=== PATIENT | female | born 1980 | race Caucasian/White ===

== ENCOUNTER 2016-10-01 12:58 | Emergency (ER) | payer SELFPAY ==
[2016-10-01] MEDS ORDERED: Promethazine HCl 25 MG/ML VIAL ONE (13:45)
[2016-10-01] MEDS ORDERED: methylPREDNISolone Sod Succ/PF 125 MG/2 ML VIAL ONE (13:45)
[2016-10-01 14:01] LABS: #Basophils 0.1 thou/uL (0.0-0.2); #Eosinphils 0.7 thou/uL (0.0-0.7); #Lymphocytes 1.6 thou/uL (1.20-3.40); #Monocytes 0.8 thou/uL (0.11-0.59); #Neutrophils 5.3 thou/uL (1.40-6.50); %Eosinophils 8.1 % (0.0-10.0); %Monocytes 9.4 % (0.0-10.0); Hematocrit 43.5 % (36.0-47.0); Mean Platelet Volume 8.6 fL (7.4-10.4); Red Blood Cell (RBC) Count 4.77 mill/uL (4.20-5.40); White Blood Cell (WBC) Count 8.5 thou/uL (4.8-10.8)
[2016-10-01 14:14] LABS: Bilirubin Negative (Negative); Blood, Urine Negative (Negative); Glucose, Urine (Dipstick) Negative (Negative); Ketone, Urine Negative (Negative); Nitrite Negative (Negative); Protein, Urine (Dipstick) Negative (Neg-Trace); Urobilinogen 0.2 mg/dL (0.2-1.0)
[2016-10-01 14:18] LABS: ALT (SGPT) 15 U/L (0-55); AST (SGOT) 15 U/L (5-34); Alkaline Phosphatase 71 U/L (40-150); Anion Gap 15 mmol/L (10-20); BUN (Urea Nitrogen) 8 mg/dL (7.0-18.7); Bilirubin, Total 0.6 mg/dL (0.2-1.2); Calc. Creatinine Clearance 0 mL/min (70-130); Calcium 9.9 mg/dL (7.8-10.44); Carbon Dioxide 23 mmol/L (22-29); Chloride 108 mmol/L (98-107); Estimated GFR-MDRD 87; Globulin 2.9 g/dL (2.4-3.5); Protein, Total 7.9 g/dL (6.0-8.3)
--- NOTE | 2016-10-01 15:04 | ERRECORD ---
[facility] EMERGENCY RECORD HPI WEAK-DIZZY (13:35 JPIP) CHIEF COMPLAINT: Patient presents for evaluation of dizziness, Patient presents for evaluation of vertigo. HISTORIAN: History provided by patient. LOCATION: No localizing symptoms. QUALITY: Patient is alert and oriented to person, place and time, [place] coma score is 15. SEVERITY: Currently symptoms are moderate. TIME COURSE: Sudden onset of symptoms, 5, days ago, Symptoms are worsening, are constant, initial onset of symptoms was approx. 1 year ago. She has had intermittent episodes of vertigo since. ASSOCIATED WITH: No associated chest pain, No associated chills, No associated ear pain, No associated fever, No associated headache, No associated nausea, No associated vomiting, No associated visual changes, No associated upper respiratory infection. EXACERBATED BY: Patient's condition exacerbated by movement. RELIEVED BY: Patient's condition relieved by remaining still. ROS (13:35 JPIP) CONSTITUTIONAL: Historian denies chills, denies fatigue, denies fever, denies lethargy, denies malaise. EYES: Historian denies eye pain, denies eye redness, denies vision changes. ENT: Historian denies otalgia, denies otorrhea, denies rhinorrhea, denies sinus pain. CARDIOVASCULAR: Historian denies chest pain, denies palpitations. RESPIRATORY: Historian denies cough, denies shortness of breath. GI: Historian denies nausea, denies vomiting. GENITOURINARY FEMALE: Historian denies dysuria, reports frequency, denies urgency. SKIN: Historian denies rash, denies skin changes, denies skin lesions. NEUROLOGIC: Historian reports dizziness, denies focal weakness, denies headache, denies lethargy, denies mental status changes, denies paralysis, reports paresthesias. [place] kim hands and feet "tingling" and feeling strange. ENDOCRINE: Historian denies polydipsia, reports polyuria. PSYCHIATRIC: Historian reports drug abuse, reports marijuana abuse. +smoker. NOTES: All systems reviewed, negative except as described above. PAST MEDICAL HISTORY MEDICAL HISTORY: Past medical history includes history of malignancy, primary site cervical, metastatic, treated with surgery, Date of last treatment: 09/19/2013, Past medical history includes pulmonary disease, asthma. (13:08 KMOR) FEMALE SURGICAL HISTORY: scar tissue removed from uterus, Surgical history of appendectomy, Date of surgery 2003, Surgical &a-1R&a+25V*p+0X*[id number]*c202B*c15G*c2P*p-0X&a-25V&a+1R Name: Alexandra Adamson : 1980 F36 MedRec: [id number] AcctNum: [id number] Prepared: Stephanie Oct 01, 2016 15:02 by Interface Page [address] [facility] EMERGENCY RECORD history of tonsillectomy, Surgical history of tubal ligation, Date of surgery 2006. (13:08 KMOR) PSYCHIATRIC HISTORY: No previous psychiatric history. (13:08 KMOR) SOCIAL HISTORY: Patient drinks socially, every week, Patient currently uses drugs, abuses marijuana, Patient currently uses tobacco, smokes cigarettes, daily, Patient smokes 1/2 packs per day. (13:08 KMOR) NOTES: Nursing records reviewed, Medication list reviewed. (13:40 JPIP) KNOWN ALLERGIES No Known Drug Allergies CURRENT MEDICATIONS (14:12 KMOR) None VITAL SIGNS VITAL SIGNS: BP: 140/100, Pulse: 72, Resp: 18, Temp: 98.2 (Oral), Pain: 0, O2 sat: 97 on Room Air, Time: 10/01/2016 13:04. (13:04 KMOR) BP: 135/85, Pulse: 71, Resp: 18, Pain: 0, O2 sat: 97 on Room Air, Time: 10/01/2016 13:20. (13:20 KMOR) BP: 118/81, Pulse: 85, Resp: 18, Pain: 0, O2 sat: 99 on Room Air, Time: 10/01/2016 14:30. (14:30 KMOR) Temp: 98.4 (Oral), Time: 10/01/2016 14:39. (14:39 AHOO) PHYSICAL EXAM (13:38 JPIP) CONSTITUTIONAL: Vital signs reviewed, Patient afebrile, Pulse normal, Blood pressure normal, Respiratory rate normal, Patient appears, uncomfortable, Patient alert and oriented to person, place and time. HEAD: Head exam included findings of head atraumatic, normocephalic. EYES: Eye exam included findings of eyelids normal to inspection, Pupils equally round and reactive to light, Left pupil 3 mm in size, Right pupil 3 mm in size, Extraocular muscles intact, Conjunctiva normal, Sclera normal, no periorbital ecchymosis, no periorbital edema, no periorbital erythema, Nystagmus present, horizontal. ENT: Ear exam normal, external ear normal, tympanic membranes normal, no foreign body, no drainage, no bleeding, Pharynx exam normal, not injected, no swelling, symmetrical, Uvula exam normal, midline, no edema, Mouth exam normal, mucous membranes moist. NECK: Neck exam included findings of normal range of motion, Trachea midline, no meningeal signs, no cervical adenopathy, no tenderness. RESPIRATORY CHEST: Respiratory exam included findings of no respiratory distress, Breath sounds clear, No wheezing, No rales, No rhonchi, Breath sounds not absent, Breath sounds not diminished. CARDIOVASCULAR: Cardiovascular exam included findings of heart &a-1R&a+25V*p+0X*[id number]*c202B*c15G*c2P*p-0X&a-25V&a+1R Name: Alexandra Adamson : 1980 F36 MedRec: [id number] AcctNum: [id number] Prepared: Stephanie Oct 01, 2016 15:02 by Interface Page [address] [facility] EMERGENCY RECORD rate regular rate and rhythm, Heart sounds normal, no murmurs, no rub. ABDOMEN FEMALE: Abdominal exam included findings of abdomen nontender, Liver normal, Spleen normal, no distension, no mass, no pulsatile masses, no peritoneal signs, no rigidity, no guarding, no rebound. UPPER EXTREMITY: Upper extremity exam included findings of inspection normal, Range of motion normal. LOWER EXTREMITY: Lower extremity exam included findings of inspection normal, Range of motion normal. NEURO: [place] coma scale 15, Neuro exam findings include patient oriented to person, place and time, Speech normal, Gait abnormal, not tested due to dizziness, no focal motor deficits, Babinski's negative, Nystagmus present, horizontal, bilaterally, no clonus, NIHSS- 0- CN II-XII intact. SKIN: Skin exam included findings of skin warm, dry, and normal in color. LYMPHATIC: Lymphatic exam included findings of cervical nodes normal, Submandibular normal. PSYCHIATRIC: Psychiatric exam included findings of patient oriented to person place and time, Normal affect. EKG INTERPRETATION (13:41 JPIP) MONITOR STRIP: principal associate strip interpreted by Emergency Department Physician, Monitor strip shows normal sinus rhythm, with no ectopics, No ST changes noted. RADIOLOGYINTERPRETATION (14:32 JPIP) HEAD: Head CT negative, with contrast, no bleed, no mass, no acute ischemic stroke, no acute changes. 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 MEDICATION ADMINISTRATION SUMMARY Drug Name: *phenergan, Dose Ordered: * , Route: IV Fluid Infusion, Status: Given, Time: 13:40 10/01/2016, Drug Name: Solu-MEDROL injection, Dose Ordered: 125 mg, Route: IV Push, Status: Given, Time: 13:40 10/01/2016, *Additional information available in notes, Detailed record available in Medication Service section. DOCTOR NOTES (14:32 JPIP) RE-EVALUATION: Routine re-evaluation, after administration of, phenergan, solumedrol, The patient's condition has improved, still a little dizzy but is able to move her head slowly without the severe dizziness. PROBLEM LIST &a-1R&a+25V*p+0X*t1746G*c202B*c15G*c2P*p-0X&a-25V&a+1R Name: Alexandra Adamson : 1980 F36 MedRec: [id number] AcctNum: [id number] Prepared: FriOct 01, 2016 15:02 by Interface Page [address] [facility] EMERGENCY RECORD No recorded problems DIAGNOSIS (14:36 JPIP) FINAL: PRIMARY: BENIGN PAROXYSMAL VERTIGO BILATERAL. PRESCRIPTION (14:34 JPIP) Atarax: TABLET : 25 mg : ORAL : Quantity: 1 Unit: tab(s) Route: ORAL Schedule: every 12 hours Dispense: 30 May substitute. Refills: No Refills . NOTES: as needed for vertigo No refills. DISPOSITION PATIENT: Disposition Type: Discharge, Disposition: *Discharge Home, Condition: Good. (14:36 JPIP) Patient left the department. (14:56 AHOO) Mathew: AHOO=HOSSEIN [place], November JPIP=DO Rehman Joseph KMOR=NOHELIA Banks, Emily &a-1R&a+25V*p+0X*a8056V*c202B*c15G*c2P*p-0X&a-25V&a+1R Name: Alexandra Adamson : 1980 F36 MedRec: [id number] AcctNum: [id number] Prepared: Stephanie Oct 01, 2016 15:02 by Interface Page 4 of 4 pMD MTDD
--- NOTE | 2016-10-01 15:12 | PICIS ---
[facility] EMERGENCY RECORD TRIAGE (FriOct 01, 2016 13:02 KMOR) TRIAGE NOTES: DIZZNESS X1 YEAR, WORSE OVER PAST 4 DAYS. (FriOct 01, 2016 13:02 KMOR) PATIENT: NAME: Alexandra Adamson, AGE: 36, GENDER: female, : Fri1980, TIME OF GREET: FriOct 01, 2016 12:59, PREFERRED LANGUAGE: Yakut, ETHNICITY: Not or , ECODE BILLING MAP: [facility], SSN: [id number], Zip Code: [address], KG WEIGHT: 83.91, PHONE: , , , PERSON ID: [id number], PAYMENT: [employer] Self Pay, PCP: Silver COTTO KRISTI. (FriOct 01, 2016 13:02 KMOR) COMPLAINT: Dizziness. (FriOct 01, 2016 13:02 KMOR) ADMISSION: URGENCY: 3 Urgent, ADMISSION SOURCE: Home, TRANSPORT: CAR, BED: ER -04. (FriOct 01, 2016 13:02 KMOR) ASSESSMENT: Assessment: A&OX4. RR EVEN AND UNLABORED., Symptoms began greater than 1 week ago. (13:08 KMOR) PAIN: No complaint of pain. (13:08 KMOR) SIRS SCORING: Heart Rate 55-109 (0), Temp range 96.8-101.1 (0), respiratory rate 12-24 (0), Mental Status altered: no (0), Infection or Suspected Infection: No. (13:08 KMOR) TRIAGE SCREENING: Patient denies suicidal ideation, Patient denies presence of domestic violence. (13:08 KMOR) PROVIDERS: TRIAGE NURSE: Emily Banks RN. (FriOct 01, 2016 13:02 KMOR) PREVIOUS VISIT ALLERGIES: No Known Drug Allergies. (FriOct 01, 2016 13:02 KMOR) No Known Drug Allergies. (13:08 KMOR) KNOWN ALLERGIES No Known Drug Allergies CURRENT MEDICATIONS (14:12 KMOR) None VITAL SIGNS VITAL SIGNS: BP: 140/100, Pulse: 72, Resp: 18, Temp: 98.2 (Oral), Pain: 0, O2 sat: 97 on Room Air, Time: 10/01/2016 13:04. (13:04 KMOR) BP: 135/85, Pulse: 71, Resp: 18, Pain: 0, O2 sat: 97 on Room Air, Time: 10/01/2016 13:20. (13:20 KMOR) BP: 118/81, Pulse: 85, Resp: 18, Pain: 0, O2 sat: 99 on Room Air, Time: 10/01/2016 14:30. (14:30 KMOR) Temp: 98.4 (Oral), Time: 10/01/2016 14:39. (14:39 AHOO) NURSING ASSESSMENT: FALL RISK (14:12 KMOR) FALL RISK: Fall risk assessment findings include: no history of falls (0), No bed rest greater than 2 days (0), No use of level of consciousness altering agents with mentation or cognitive changes (0), No change in blood pressure (0), Sensory deficits (1), Impaired mobility (3), Neurologic diagnosis (3), No elimination problems (0), No confusion (0), Total score 7, Fall risk. &a-1R&a+25V*p+0X*r3476I*c202B*c15G*c2P*p-0X&a-25V&a+1R Name: Alexandra Adamson : 1980 F36 MedRec: [id number] AcctNum: [id number] Prepared: FriOct 01, 2016 15:10 by Interface Page 1 of 10 pMD [facility] EMERGENCY RECORD NURSING ASSESSMENT: NEURO (13:16 KMOR) GCS: (6) Obeying command:, (5) Orientated:, (4) Spontaneous eye opening., Result: 15. NIHSS: CVA assessment findings: Level of consciousness: alert, keenly responsive (0), Questions: answers both questions correctly (0), Commands: performs both tasks correctly (0), Best gaze: normal (0), Visual: no visual loss (0), Facial palsy: normal symmetrical movement (0), Motor Left Arm: no drift, arm stays 90/45 degrees for full 10 seconds (0), Motor Right Arm: no drift, arm stays 90/45 degrees for full 10 seconds (0), Motor left leg: no drift, leg stays at 30 degrees for full five seconds (0), Motor right leg: no drift, leg stays at 30 degrees for full five seconds (0), Limb ataxia absent (0), Sensory: normal, no sensory loss (0), Best language: no aphasia; normal (0), Dysarthria: normal (0), Extinction and Inattention: normal (0), Total score 0. CONSTITUTIONAL: Patient arrives, via hospital wheelchair, Gait steady, History obtained from patient, Patient appears, uncomfortable, Patient cooperative, Patient alert, Oriented to person, place and time, Skin warm, Skin dry, Skin normal in color, Mucous membranes pink, Mucous membranes moist, Patient is well-groomed, Patient complains of Dizziness, Patient reports dizziness since 1 year ago after having a fall. Reports over past 4 days dizziness has increased and patient is feeling weak. Patient reports she was dx with severe vertigo and suppose to see specialist but has not been able to. PAIN: Patient rates pain as 0 out of 10. NEURO: Pupils equally round and reactive to light, Left pupil 2 mm in size, Right pupil 2 mm in size, Able to close eyes, Face symmetrical, Speech normal, Nystagmus, horizontal, no visual changes, no facial droop, no facial numbness, no swelling, GCS:, Eye opening: (4) - Spontaneous, Verbal: (5) - Oriented/conversive, Motor: (6) - Obeys commands/Spontaneous, GCS Total: 15, Hand grasps equal, Foot press equal, Associated with dizziness described as, feeling unsteady, feelings of movement, patient spinning, Associated with weakness. ENT: Ear assessment findings include ear normal to inspection, Nasal assessment findings include nose normal to inspection, Sinuses normal, Nasal mucosa normal, Mouth and throat assessment findings include mouth inspection normal, Uvula normal, Tonsils normal, Mucous membranes pink, and moist, Able to swallow, Speech normal, no associated fever. NOTES: Patient tolerated procedure well. NURSING ASSESSMENT: SKIN (14:12 KMOR) SKIN: Skin assessment findings include skin warm, Skin dry, Skin normal in color, Inspection findings include: No pressure ulcer to the shoulder, Inspection findings include no pressure ulcer to the elbow, Inspection findings include no pressure ulcers to the hip, &a-1R&a+25V*p+0X*v9110B*c202B*c15G*c2P*p-0X&a-25V&a+1R Name: Alexandra Adamson : 1980 F36 MedRec: [id number] AcctNum: [id number] Prepared: Stephanie Oct 01, 2016 15:10 by Interface Page 2 of 10 pMD [facility] EMERGENCY RECORD Inspection findings include no pressure ulcer to the sacrum, Inspection findings include no pressure ulcer to the heel, Inspection findings include no pressure ulcer, Inspection findings include no pressure ulcer. SANDRA SCALE: (4) Sensory perception has no impairment, (4) Skin is rarely moist, (4) Patient walks frequently, (4) No mobility limitations, (3) Adequate nutrition, (3) Patient has no apparent problem moving, Sandra Risk Total: 22. NURSING PROCEDURE: BEDSIDE TESTING (13:10 KMOR) PATIENT IDENTIFIER: Patient actively involved in identification process, Patient's identity verified by patient stating name, Patient's identity verified by patient stating date. GLUCOSE: Glucose testing indicated for mental status changes, Venous blood sample, Result (mg/dl) 97. FOLLOW-UP: After procedure, results given to Dr. Rehman. NURSING PROCEDURE: LAUNDRY TECHNICIAN (13:20 KMOR) PATIENT IDENTIFIER: Patient actively involved in identification process, Patient's identity verified by patient stating name, Patient's identity verified by patient stating date. LAUNDRY TECHNICIAN: Cardiac monitoring indicated for complaint of chest pain, Patient placed on monitor and storage bin tender, Heart rate: 69, showing normal sinus rhythm, Patient placed on non-invasive blood pressure monitor, with disposable blood pressure cuff applied, Patient placed on continuous pulse oximetry, Adult/pediatric oxisensor applied, Oxygen saturation 99%. NOTES: Patient tolerated procedure well. NURSING PROCEDURE: DISCHARGE NOTE (14:42 AHOO) DISCHARGE: Patient discharged to home, in a wheelchair, friend driving, accompanied by friend, Summary of Care printed/ provided, Transition record given to patient, Discharge instructions given to patient, Prescriptions given and instructions on side effects given, Above person(s) verbalized understanding of discharge instructions and follow-up care, Patient treated and evaluated by physician. NURSING PROCEDURE: IV PATIENT IDENITIFIER: Patient actively involved in identification process, Patient's identity verified by patient stating name, Patient's identity verified by patient stating date. (13:35 KMOR) IV SITE 1: IV therapy indicated for hydration, IV therapy indicated for medication administration, IV established, to the right antecubital, using an 18 gauge catheter, in one attempt, Saline lock established, Flushed with normal saline (mls): 10CC. (13:35 KMOR) FOLLOW-UP SITE 1: After procedure, 2x3 ensure dressing applied, After procedure, no drainage at IV site, After procedure, no swelling at IV site, After procedure, no redness at IV site. (13:35 KMOR) &a-1R&a+25V*p+0X*t1879K*c202B*c15G*c2P*p-0X&a-25V&a+1R Name: Alexandra Adamson : 1980 F36 MedRec: [id number] AcctNum: [id number] Prepared: FriOct 01, 2016 15:10 by Interface Page 3 of 10 pMD [facility] EMERGENCY RECORD After procedure, 2x2 dressing applied, After procedure, no drainage at IV site, After procedure, no swelling at IV site, After procedure, no redness at IV site, IV discontinued, due to patient being discharged, catheter intact. (14:38 AHOO) NOTES: Patient tolerated procedure well. (13:35 KMOR) NURSING PROCEDURE: NURSE NOTES (14:29 KMOR) NURSES NOTES: Notes: Dr. Rehman in to review results with patient. NURSING PROCEDURE: TRANSPORT TO TESTS (14:10 AHOO) PATIENT IDENTIFIER: Patient actively involved in identification process, Patient's identity verified by patient stating name, Patient's identity verified by patient stating date, Patient's identity verified by hospital ID bracelet, Patient's identity verified by family member. TRANSPORT TO TESTS: Patient transported to CT scan, via cart, Accompanied by x-ray biofuels production technician. ORDER DETAILS Order Name: BLOOD GLUCOSE MONITOR, Status: Done, Time: 13:10 10/01/2016, User: KMOR, - Ordered for: DO Rehman Joseph, - Entered by: DO Rehman Joseph - Stephanie Oct 01, 2016 13:08, - Quantity: 1, Order Name: LAUNDRY TECHNICIAN ED, Status: Done, Time: 14:51 10/01/2016, User: GREYSON, - Ordered for: DO Rehman Joseph, - Entered by: NOHELIA Banks Krista - FriOct 01, 2016 14:51, - Quantity: 1, Order Name: CBC with Differential, Status: Active, Time: 13:24 10/01/2016, User: MINESH, - Ordered for: DO Rehman Joseph, - Entered by: DO Rehman Joseph - FriOct 01, 2016 13:24, - Quantity: 1, Order Name: Comprehensive Metabolic Panel, Status: Active, Time: 13:24 10/01/2016, User: MINESH, - Ordered for: DO Rehman Joseph, - Entered by: DO Rehman Joseph - FriOct 01, 2016 13:24, - Quantity: 1, Order Name: CT Brain W WO Con, Status: Active, Time: 13:32 10/01/2016, User: MINESH, - Ordered for: DO Rehman Joseph, - Entered by: DO Rehman Joseph - FriOct 01, 2016 13:32, - Quantity: 1, Order Name: SALINE LOCK, Status: Done, Time: 14:03 10/01/2016, User: GREYSON, - Ordered for: DO Rehman Joseph, - Entered by: DO Rehman Joseph - FriOct 01, 2016 13:25, &a-1R&a+25V*p+0X*s4015T*c202B*c15G*c2P*p-0X&a-25V&a+1R Name: Alexandra Adamson : 1980 6 MedRec: [id number] AcctNum: [id number] Prepared: FriOct 01, 2016 15:10 by Interface Page 4 of 10 D [facility] EMERGENCY RECORD - Quantity: 1, Order Name: Urinalysis w/ Rflx Microscopic, Status: Active, Time: 13:24 10/01/2016, User: MINESH, - Ordered for: DO Rehman Joseph, - Entered by: DO Rehman Joseph - FriOct 01, 2016 13:24, - Quantity: 1. MEDICATION ADMINISTRATION SUMMARY Drug Name: *phenergan, Dose Ordered: * , Route: IV Fluid Infusion, Status: Given, Time: 13:40 10/01/2016, Drug Name: Solu-MEDROL injection, Dose Ordered: 125 mg, Route: IV Push, Status: Given, Time: 13:40 10/01/2016, *Additional information available in notes, Detailed record available in Medication Service section. MEDICATION SERVICE phenergan: Free Text order: phenergan : 12.5mg in 100ml NS. at 400 mls/hr : IV Fluid Infusion Ordered by: Arthur Rehman DO Entered by: Arthur Rehman DO FriOct 01, 2016 13:25 , Acknowledged by: Emily Banks RN FriOct 01, 2016 13:35 Documented as given by: Emily Banks RN FriOct 01, 2016 13:40 Patient, Medication, Dose, Route and Time verified prior to administration. Amount given: 12.5MG, IV SITE #1 IVPB or drip, initial infusion, IVPB mixed in: 100ml, Fluid: 0.9NS, via primary tubing, Awake and alert- acceptable, Connections checked prior to administration, Line traced prior to administration, Catheter placement confirmed via flush prior to administration, IV site without signs or symptoms of infiltration during medication administration, No swelling during administration, No drainage during administration, IV flushed after administration, Correct patient, time, route, dose and medication confirmed prior to administration, Patient advised of actions and side-effects prior to administration, Allergies confirmed and medications reviewed prior to administration, Patient in position of comfort, Side rails up, Cart in lowest position, Family at bedside. : Follow Up : Response assessment performed, No signs or symptoms of allergic reaction noted, _IV SITE #1:_, Medication infusion discontinued, on FriOct 01, 2016 13:55, 15 minutes, ., Total amount infused: 100ML, IV Line flushed after administration. (14:13 KMOR) Solu-MEDROL injection: Order: Solu-MEDROL injection (methylprednisolone sod succ) - Dose: 125 mg : IV Push Ordered by: Arthur Rehman DO Entered by: Arthur Rehman DO FriOct 01, 2016 13:25 , Acknowledged by: Emily Banks RN FriOct 01, 2016 13:35 Documented as given by: Emily Banks RN FriOct 01, 2016 13:40 Patient, Medication, Dose, Route and Time verified prior to administration. &a-1R&a+25V*p+0X*g5387S*c202B*c15G*c2P*p-0X&a-25V&a+1R Name: Alexandra Adamson : 1980 F36 MedRec: [id number] AcctNum: [id number] Prepared: FriOct 01, 2016 15:10 by Interface Page 5 of 10 pMD [facility] EMERGENCY RECORD Amount given: 125MG, IV SITE #1 IVP, initial medication, Slowly, Connections checked prior to administration, Line traced prior to administration, Catheter placement confirmed via flush prior to administration, IV site without signs or symptoms of infiltration during medication administration, No swelling during administration, No drainage during administration, IV flushed after administration, Correct patient, time, route, dose and medication confirmed prior to administration, Patient advised of actions and side-effects prior to administration, Allergies confirmed and medications reviewed prior to administration, Patient in position of comfort, Side rails up, Cart in lowest position, Family at bedside. : Follow Up : Response assessment performed, No signs or symptoms of allergic reaction noted, _IV SITE #1:_. (14:40 AHOO) HPI WEAK-DIZZY (13:35 JPIP) CHIEF COMPLAINT: Patient presents for evaluation of dizziness, Patient presents for evaluation of vertigo. HISTORIAN: History provided by patient. LOCATION: No localizing symptoms. QUALITY: Patient is alert and oriented to person, place and time, Volga coma score is 15. SEVERITY: Currently symptoms are moderate. TIME COURSE: Sudden onset of symptoms, 5, days ago, Symptoms are worsening, are constant, initial onset of symptoms was approx. 1 year ago. She has had intermittent episodes of vertigo since. ASSOCIATED WITH: No associated chest pain, No associated chills, No associated ear pain, No associated fever, No associated headache, No associated nausea, No associated vomiting, No associated visual changes, No associated upper respiratory infection. EXACERBATED BY: Patient's condition exacerbated by movement. RELIEVED BY: Patient's condition relieved by remaining still. ROS (13:35 JPIP) CONSTITUTIONAL: Historian denies chills, denies fatigue, denies fever, denies lethargy, denies malaise. EYES: Historian denies eye pain, denies eye redness, denies vision changes. ENT: Historian denies otalgia, denies otorrhea, denies rhinorrhea, denies sinus pain. CARDIOVASCULAR: Historian denies chest pain, denies palpitations. RESPIRATORY: Historian denies cough, denies shortness of breath. GI: Historian denies nausea, denies vomiting. GENITOURINARY FEMALE: Historian denies dysuria, reports frequency, denies urgency. SKIN: Historian denies rash, denies skin changes, denies skin lesions. NEUROLOGIC: Historian reports dizziness, denies focal weakness, denies headache, denies lethargy, denies mental status changes, denies paralysis, reports paresthesias. CO &a-1R&a+25V*p+0X*j2308V*c202B*c15G*c2P*p-0X&a-25V&a+1R Name: Alexandra Adamson : 1980 F36 MedRec: [id number] AcctNum: [id number] Prepared: FriOct 01, 2016 15:10 by Interface Page 6 of 10 pMD [facility] EMERGENCY RECORD kim hands and feet "tingling" and feeling strange. ENDOCRINE: Historian denies polydipsia, reports polyuria. PSYCHIATRIC: Historian reports drug abuse, reports marijuana abuse. +smoker. NOTES: All systems reviewed, negative except as described above. PAST MEDICAL HISTORY MEDICAL HISTORY: Past medical history includes history of malignancy, primary site cervical, metastatic, treated with surgery, Date of last treatment: 09/19/2013, Past medical history includes pulmonary disease, asthma. (13:08 KMOR) FEMALE SURGICAL HISTORY: scar tissue removed from uterus, Surgical history of appendectomy, Date of surgery 2003, Surgical history of tonsillectomy, Surgical history of tubal ligation, Date of surgery 2006. (13:08 KMOR) PSYCHIATRIC HISTORY: No previous psychiatric history. (13:08 KMOR) SOCIAL HISTORY: Patient drinks socially, every week, Patient currently uses drugs, abuses marijuana, Patient currently uses tobacco, smokes cigarettes, daily, Patient smokes 1/2 packs per day. (13:08 KMOR) NOTES: Nursing records reviewed, Medication list reviewed. (13:40 JPIP) PHYSICAL EXAM (13:38 JPIP) CONSTITUTIONAL: Vital signs reviewed, Patient afebrile, Pulse normal, Blood pressure normal, Respiratory rate normal, Patient appears, uncomfortable, Patient alert and oriented to person, place and time. HEAD: Head exam included findings of head atraumatic, normocephalic. EYES: Eye exam included findings of eyelids normal to inspection, Pupils equally round and reactive to light, Left pupil 3 mm in size, Right pupil 3 mm in size, Extraocular muscles intact, Conjunctiva normal, Sclera normal, no periorbital ecchymosis, no periorbital edema, no periorbital erythema, Nystagmus present, horizontal. ENT: Ear exam normal, external ear normal, tympanic membranes normal, no foreign body, no drainage, no bleeding, Pharynx exam normal, not injected, no swelling, symmetrical, Uvula exam normal, midline, no edema, Mouth exam normal, mucous membranes moist. NECK: Neck exam included findings of normal range of motion, Trachea midline, no meningeal signs, no cervical adenopathy, no tenderness. RESPIRATORY CHEST: Respiratory exam included findings of no respiratory distress, Breath sounds clear, No wheezing, No rales, No rhonchi, Breath sounds not absent, Breath sounds not diminished. CARDIOVASCULAR: Cardiovascular exam included findings of heart rate regular rate and rhythm, Heart sounds normal, no murmurs, no &a-1R&a+25V*p+0X*c7709X*c202B*c15G*c2P*p-0X&a-25V&a+1R Name: Alexandra Adamson : 1980 F36 MedRec: [id number] AcctNum: [id number] Prepared: FriOct 01, 2016 15:10 by Interface Page 7 of 10 pMD [facility] EMERGENCY RECORD rub. ABDOMEN FEMALE: Abdominal exam included findings of abdomen nontender, Liver normal, Spleen normal, no distension, no mass, no pulsatile masses, no peritoneal signs, no rigidity, no guarding, no rebound. UPPER EXTREMITY: Upper extremity exam included findings of inspection normal, Range of motion normal. LOWER EXTREMITY: Lower extremity exam included findings of inspection normal, Range of motion normal. NEURO: Lissette coma scale 15, Neuro exam findings include patient oriented to person, place and time, Speech normal, Gait abnormal, not tested due to dizziness, no focal motor deficits, Babinski's negative, Nystagmus present, horizontal, bilaterally, no clonus, NIHSS- 0- CN II-XII intact. SKIN: Skin exam included findings of skin warm, dry, and normal in color. LYMPHATIC: Lymphatic exam included findings of cervical nodes normal, Submandibular normal. PSYCHIATRIC: Psychiatric exam included findings of patient oriented to person place and time, Normal affect. EVENTS TRANSFER: Triage to Emergency Emergency Room -04. (FriOct 01, 2016 13:02 KMOR) Removed from Emergency Emergency Room -04. (14:56 AHOO) RADIOLOGYINTERPRETATION (14:32 JPIP) HEAD: Head CT negative, with contrast, no bleed, no mass, no acute ischemic stroke, no acute changes. ECONOMIC DEVELOPMENT SPECIALIST: Preliminary review of CT scans by, Radiologist. EKG INTERPRETATION (13:41 JPIP) MONITOR STRIP: panel monitor strip interpreted by Emergency Department Physician, Monitor strip shows normal sinus rhythm, with no ectopics, No ST changes noted. O2SAT INTERPRETATION (13:38 JPIP) O2SAT: Continuous pulse oximetry, Oxygen saturation 97%, on room air, Oxygen saturation interpretation: Normal, No intervention required. DOCTOR NOTES (14:32 JPIP) RE-EVALUATION: Routine re-evaluation, after administration of, phenergan, solumedrol, The patient's condition has improved, still a little dizzy but is able to move her head slowly without the severe dizziness. PROBLEM LIST &a-1R&a+25V*p+0X*a6189O*c202B*c15G*c2P*p-0X&a-25V&a+1R Name: Alexandra Adamson : 1980 F36 MedRec: [id number] AcctNum: [id number] Prepared: FriOct 01, 2016 15:10 by Interface Page 8 of 10 pMD [facility] EMERGENCY RECORD No recorded problems DIAGNOSIS (14:36 JPIP) FINAL: PRIMARY: BENIGN PAROXYSMAL VERTIGO BILATERAL. DISPOSITION PATIENT: Disposition Type: Discharge, Disposition: *Discharge Home, Condition: Good. (14:36 JPIP) Patient left the department. (14:56 AHOO) INSTRUCTION (14:36 JPIP) DISCHARGE: BENIGN POSITIONAL VERTIGO. FOLLOWUP: Silver COTTO KRISTI, [facility], [facility] [id number], [phone]. SPECIAL: Follow up with Primary Care Physician within 72 hours Return to the Emergency Department for increased symptoms problems or concerns Consider Physical Therapy for Nora maneuver for treatment. PRESCRIPTION (14:34 JPIP) Atarax: TABLET : 25 mg : ORAL : Quantity: 1 Unit: tab(s) Route: ORAL Schedule: every 12 hours Dispense: 30 May substitute. Refills: No Refills . NOTES: as needed for vertigo No refills. IMAGING (14:53 AHOO) *DISCHARGE INSTRUCTIONS RECEIPT: Image captured from scanner. *SUPPLY CHARGE SHEET: Image captured from scanner. RESULTS LABORATORY: Accuchek Collection DT: FriOct 01, 2016 13:20, Accuchek 97 mg/dL, Range (70-110). (13:24 JPIP) Comprehensive Metabolic Panel Collection DT: FriOct 01, 2016 13:55, Sodium 142 mmol/L, Range (136-145), Potassium 4.1 mmol/L, Range (3.5-5.1), *Chloride 108 - H mmol/L, Range (98-107), Carbon Dioxide 23 mmol/L, Range (22-29), Anion Gap 15 mmol/L, Range (10-20), BUN (Urea Nitrogen) 8 mg/dL, Range (7.0-18.7), Creatinine 0.75 mg/dL, Range (0.6-1.1), Estimated GFR-MDRD 87 , Reference Range for Estimated GFR: Greater than 90, mL/min/1.73 m2 NOTE: The MDRD equation has not been validated for use, with the elderly (over 70 years of age), women, patients with, serious comorbid condition or persons with extremes of body size, muscle, mass, or nutritional status. , Glucose 100 mg/dL, Range (70-105), &a-1R&a+25V*p+0X*c6698G*c202B*c15G*c2P*p-0X&a-25V&a+1R Name: Alexandra Adamson : 1980 F36 MedRec: [id number] AcctNum: [id number] Prepared: FriOct 01, 2016 15:10 by Interface Page 9 of 10 pMD [facility] EMERGENCY RECORD Calcium 9.9 mg/dL, Range (7.8-10.44), Bilirubin, Total 0.6 mg/dL, Range (0.2-1.2), Protein, Total 7.9 g/dL, Range (6.0-8.3), NOTE: Plasma values are generally 0.3 to 0.5 g/dL higher than serum values, due to the presence of fibrinogen. , Albumin 5.0 g/dL, Range (3.5-5.0), Globulin 2.9 g/dL, Range (2.4-3.5), Alb/Glob Ratio 1.7 g/dL, Range (1.2-2.2), Alkaline Phosphatase 71 U/L, Range (40-150), AST (SGOT) 15 U/L, Range (5-34), ALT (SGPT) 15 U/L, Range (0-55). (14:24 JPIP) Urinalysis w/ Rflx Microscopic Collection DT: FriOct 01, 2016 14:12, Color Yellow , Range (Yellow), Clarity Clear , Range (Clear), Specific [place], Urine 1.015 , Range (1.005-1.030), pH, Urine 8.5 , Range (5.0-9.0), Leukocyte Negative , Range (Negative), Nitrite Negative , Range (Negative), Protein, Urine (Dipstick) Negative mg/dL, Range (Neg-Trace), Glucose, Urine (Dipstick) Negative mg/dL, Range (Negative), Ketone, Urine Negative mg/dL, Range (Negative), Urobilinogen 0.2 mg/dL, Range (0.2-1.0), Bilirubin Negative , Range (Negative), Blood, Urine Negative , Range (Negative). (14:24 JPIP) CBC with Differential Collection DT: FriOct 01, 2016 13:55, White Blood Cell (WBC) Count 8.5 thou/uL, Range (4.8-10.8), Red Blood Cell (RBC) Count 4.77 mill/uL, Range (4.20-5.40), Hemoglobin 14.6 g/dL, Range (12.0-16.0), Hematocrit 43.5 %, Range (36.0-47.0), Mean Corpuscular Volume 91.3 fl, Range (81.0-99.0), Mean Corpuscular Hemoglobin 30.7 pg, Range (27.0-31.0), Mean Corpuscular HGB CONC 33.6 g/dL, Range (32.0-36.0), *RBC Distribution Width 11.1 - L %, Range (11.5-14.5), Platelet Count 247 thou/uL, Range (130-400), Mean Platelet Volume 8.6 fL, Range (7.4-10.4), %Neutrophils 63.1 %, Range (42.0-75.0), *%Lymphocytes 18.4 - L %, Range (21.0-51.0), %Monocytes 9.4 %, Range (0.0-10.0), %Eosinophils 8.1 %, Range (0.0-10.0), %Basophils 1.0 %, Range (0.0-1.0), #Neutrophils 5.3 thou/uL, Range (1.40-6.50), #Lymphocytes 1.6 thou/uL, Range (1.20-3.40), *#Monocytes 0.8 - H thou/uL, Range (0.11-0.59), #Eosinphils 0.7 thou/uL, Range (0.0-0.7), #Basophils 0.1 thou/uL, Range (0.0-0.2). (14:24 JPIP) Mathew: OO=HOSSEIN Urbina, November JPIP=DO Rehman Joseph KMOR=NOHELIA Banks, Emily &a-1R&a+25V*p+0X*x0319H*c202B*c15G*c2P*p-0X&a-25V&a+1R Name: Alexandra Adamson : 1980 [facility] MedRec: [id number] AcctNum: [id number] Prepared: Stephanie Oct 01, 2016 15:10 by Interface Page 10 of 10 pMKirk GONZALES
--- NOTE | 2016-10-01 21:40 | CT ---
CT OF THE BRAIN WITH AND WITHOUT CONTRAST 10/01/16 Computed tomography of the brain was done first without IV contrast followed by a scan with contrast due to history of cervical cancer. The patient presents with mental status changes and vertigo. The ventricles are normal in size with no shift. No intracranial bleeding, mass, edema, or sign of a cute stroke was found. Once IV contrast was given, there were no areas of abnormal enhancement. Spec ifically, no enhancing masses were seen. The sphenoid sinus and mastoid air cells are clear. The maria alejandra varium appears intact. IMPRESSION: No significant intracranial findings. POS: HOME
== END 2016-10-01 14:42 | disposition home or self-care (01) ==
LOC: BURERS 12:58
DX: H81.13 Benign paroxysmal vertigo, bilateral (principal); J45.909 Unspecified asthma, uncomplicated; F17.210 Nicotine dependence, cigarettes, uncomplicated
CPT/HCPCS: 36416; 70470; 80053; 81003; 85025; 96374; 96375; J2550; J2930

== ENCOUNTER 2016-10-03 18:42 | Emergency (ER) | payer SELFPAY ==
[2016-10-03] MEDS ORDERED: Ondansetron HCl/PF 4 MG/2 ML Vial ONE (19:24)
== END 2016-10-03 20:20 | disposition home or self-care (01) ==
LOC: BURERS 18:42
DX: R42 Dizziness and giddiness (principal); T43.595A Adverse effect of other antipsychotics and neuroleptics, initial encounter; J45.909 Unspecified asthma, uncomplicated; F17.210 Nicotine dependence, cigarettes, uncomplicated; Z79.899 Other long term (current) drug therapy
CPT/HCPCS: 93005; 94760; 96361; 96374; J2405

== ENCOUNTER 2016-10-11 10:38 | Outpatient (CLI) | payer OTHER ==
[2016-10-11 11:06] LABS: Hemoglobin A1c 4.9 % (4.0-6.0)
== END 2016-10-11 10:39 | disposition home or self-care (01) ==
LOC: BURLAB 10:38
PROVIDERS: ATTEND Family Medicine
DX: B37.0 Candidal stomatitis (principal); R42 Dizziness and giddiness; R00.2 Palpitations; R63.2 Polyphagia; R63.1 Polydipsia; R35.8 Other polyuria
CPT/HCPCS: 36415; 83036; 84443; 87389

== ENCOUNTER 2016-10-19 23:09 | Emergency (ER) | payer SELFPAY ==
[2016-10-19] MEDS ORDERED: methylPREDNISolone Sod Succ/PF 125 MG/2 ML VIAL ONE (23:54)
--- NOTE | 2016-10-20 09:50 | RAD ---
PORTABLE CHEST: Date: 10/19/16 An AP portable film at 2325 hours shows a normal sized heart and clear lungs. No infiltrate or effus ion is present. There is no vascular congestion or edema. The mediastinum appears normal and the tra natali is midline. There is a curvature to the thoracolumbar spine convex right. IMPRESSION: No acute thoracic findings. POS: HOME
== END 2016-10-20 00:29 | disposition home or self-care (01) ==
LOC: BURERS 23:09
DX: J45.901 Unspecified asthma with (acute) exacerbation (principal); F17.210 Nicotine dependence, cigarettes, uncomplicated
CPT/HCPCS: 71010; 96374; J2930; J7620

== ENCOUNTER 2017-01-02 21:33 | Emergency (ER) | payer SELFPAY ==
[2017-01-02] MEDS ORDERED: Ketorolac Tromethamine 60 MG/2 ML VIAL ONE (22:37)
[2017-01-02] MEDS ORDERED: Lidocaine Viscous Sol 2% 15 ml UD Cup ONE (22:37)
[2017-01-02] MEDS ORDERED: Mag-Al Plus 1200 MG/1200 MG/120 MG/30 ML UDCUP ONE (22:37)
== END 2017-01-02 23:30 | disposition home or self-care (01) ==
LOC: BURERS 21:33
DX: R07.82 Intercostal pain (principal); J45.909 Unspecified asthma, uncomplicated; F17.210 Nicotine dependence, cigarettes, uncomplicated; Z79.899 Other long term (current) drug therapy
CPT/HCPCS: J1885

== ENCOUNTER 2017-02-26 21:32 | Emergency (ER) | payer SELFPAY ==
[2017-02-26] MEDS ORDERED: Diazepam 5 MG TAB ONE ×2 (21:56→21:57)
[2017-02-26] MEDS ORDERED: Ketorolac Tromethamine 30 MG/ML VIAL ONE (22:22)
[2017-02-26 22:26] LABS: #Basophils 0.1 thou/uL (0.0-0.2); #Eosinphils 0.3 thou/uL (0.0-0.7); #Neutrophils 5.1 thou/uL (1.40-6.50); %Basophils 1.1 % (0.0-1.0); %Eosinophils 3.5 % (0.0-10.0); %Lymphocytes 23.1 % (21.0-51.0); %Monocytes 11.4 % (0.0-10.0); %Neutrophils 60.9 % (42.0-75.0); Hemoglobin 13.3 g/dL (12.0-16.0); Mean Corpuscular HGB CONC 34.9 g/dL (32.0-36.0); Mean Corpuscular Hemoglobin 31.1 pg (27.0-31.0); Mean Platelet Volume 7.7 fL (7.4-10.4); Platelet Count 247 thou/uL (130-400); RBC Distribution Width 11.1 % (11.5-14.5); Red Blood Cell (RBC) Count 4.29 mill/uL (4.20-5.40); White Blood Cell (WBC) Count 8.5 thou/uL (4.8-10.8)
[2017-02-26 22:27] LABS: Base Excess 0.9 mEq/L (-2 - +2)
[2017-02-26 22:28] LABS: Hemoglobin (Hb) 12.5 g/dL (11.7-15.5)
[2017-02-26 22:39] LABS: ALT (SGPT) 19 U/L (8-55); AST (SGOT) 15 U/L (5-34); Albumin 4.6 g/dL (3.5-5.0); Alkaline Phosphatase 72 U/L (40-150); Anion Gap 17 mmol/L (10-20); BUN (Urea Nitrogen) 9 mg/dL (7.0-18.7); Bilirubin, Total 0.4 mg/dL (0.2-1.2); Calc. Creatinine Clearance 0 mL/min (70-130); Calcium 9.9 mg/dL (7.8-10.44); Carbon Dioxide 18 mmol/L (22-29); Chloride 110 mmol/L (98-107); Estimated GFR-MDRD 80; Globulin 2.4 g/dL (2.4-3.5); Glucose 105 mg/dL (70-105); Potassium 3.5 mmol/L (3.5-5.1); Sodium 141 mmol/L (136-145)
[2017-02-26 22:41] LABS: Troponin I Less than 0.010 ng/mL (< 0.028)
--- NOTE | 2017-02-26 23:00 | RAD ---
PORTABLE CHEST 02/26/17 An AP portable film at 2144 is compared with a 10/19/16 study. The heart remains normal in size and the lungs are clear. No infiltrate, effusion or pulmonary edema was seen. The trachea is midline. The mediastinum appears normal. IMPRESSION: No acute thoracic findings. POS: HOME
== END 2017-02-26 23:11 | disposition home or self-care (01) ==
LOC: BURERS 21:32
DX: R06.02 Shortness of breath (principal); J45.909 Unspecified asthma, uncomplicated; F41.9 Anxiety disorder, unspecified; F43.10 Post-traumatic stress disorder, unspecified; Z87.891 Personal history of nicotine dependence
CPT/HCPCS: 71010; 80053; 82553; 82805; 84484; 85025; 93005; 96374; J1885; J7620

== ENCOUNTER 2018-10-22 11:20 | Emergency (ER) | payer SELFPAY ==
[2018-10-22] MEDS ORDERED: Ondansetron ODT 4 MG TAB ONE (12:07)
[2018-10-22 12:11] LABS: #Eosinphils 0.2 thou/uL (0.0-0.7); #Lymphocytes 1.5 thou/uL (1.20-3.40); #Monocytes 0.6 thou/uL (0.11-0.59); #Neutrophils 2.7 thou/uL (1.40-6.50); %Eosinophils 4.2 % (0.0-10.0); %Lymphocytes 29.1 % (21.0-51.0); %Neutrophils 53.8 % (42.0-75.0); Hemoglobin 13.3 g/dL (12.0-16.0); Mean Corpuscular Hemoglobin 29.8 pg (27.0-31.0); Mean Corpuscular Volume 87.7 fL (78.0-98.0); Mean Platelet Volume 8.4 fL (7.4-10.4); Platelet Count 241 thou/uL (130-400); RBC Distribution Width 11.6 % (11.5-14.5); Red Blood Cell (RBC) Count 4.45 mill/uL (4.20-5.40)
[2018-10-22 12:27] LABS: ALT (SGPT) 8 U/L (8-55); AST (SGOT) 11 U/L (5-34); Albumin 4.5 g/dL (3.5-5.0); Alkaline Phosphatase 68 U/L (40-150); Anion Gap 10 mmol/L (10-20); BUN (Urea Nitrogen) 8 mg/dL (7.0-18.7); Bilirubin, Total 0.7 mg/dL (0.2-1.2); Calc. Creatinine Clearance 0 mL/min (70-130); Calcium 9.7 mg/dL (7.8-10.44); Carbon Dioxide 28 mmol/L (22-29); Chloride 107 mmol/L (98-107); Estimated GFR-MDRD 83; Globulin 2.8 g/dL (2.4-3.5); Glucose 93 mg/dL (70-105); Potassium 4.2 mmol/L (3.5-5.1); Protein, Total 7.3 g/dL (6.0-8.3); Sodium 141 mmol/L (136-145)
[2018-10-22 12:35] LABS: Bilirubin Negative (Negative); Blood, Urine Negative (Negative); Clarity Clear (Clear); Glucose, Urine (Dipstick) Negative (Negative); Leukocyte Negative (Negative); Nitrite Negative (Negative); Protein, Urine (Dipstick) Negative (Neg-Trace); Specific Gravity, Urine 1.015 (1.005-1.030); Urobilinogen 0.2 mg/dL (0.2-1.0); pH, Urine 7.5 (5.0-9.0)
[2018-10-22] MEDS ORDERED: Meclizine HCl 25 MG TAB ONE (12:45)
== END 2018-10-22 13:00 | disposition home or self-care (01) ==
LOC: BURERS 11:20
DX: R42 Dizziness and giddiness (principal); F41.9 Anxiety disorder, unspecified; F17.210 Nicotine dependence, cigarettes, uncomplicated; Z79.51 Long term (current) use of inhaled steroids; Z79.899 Other long term (current) drug therapy
CPT/HCPCS: 36415; 80053; 81003; 84443; 84484; 85025; 93005; Q0162

== ENCOUNTER 2019-05-11 09:19 | Emergency (ER) | payer SELFPAY | END 2019-05-11 09:45 | disposition home or self-care (01) | LOC: BURERS 09:19 | DX: L25.9 Unspecified contact dermatitis, unspecified cause (principal); F41.9 Anxiety disorder, unspecified; J44.9 Chronic obstructive pulmonary disease, unspecified; Z85.41 Personal history of malignant neoplasm of cervix uteri; F17.210 Nicotine dependence, cigarettes, uncomplicated; Z79.51 Long term (current) use of inhaled steroids | CPT/HCPCS: 99282 ==

== ENCOUNTER 2021-02-20 11:56 | Emergency (ER) | payer SELFPAY ==
[2021-02-20 12:28] LABS: #Eosinphils 0.2 thou/uL (0.0-0.7); #Lymphocytes 1.2 thou/uL (1.20-3.40); #Monocytes 0.5 thou/uL (0.11-0.59); #Neutrophils 4.1 thou/uL (1.40-6.50); %Basophils 0.8 % (0.0-1.0); %Eosinophils 3.5 % (0.0-10.0); %Lymphocytes 19.3 % (21.0-51.0); %Monocytes 8.7 % (0.0-10.0); %Neutrophils 67.6 % (42.0-75.0); Hemoglobin 13.8 g/dL (12.0-16.0); Mean Corpuscular HGB CONC 33.6 g/dL (32.0-36.0); Mean Corpuscular Hemoglobin 29.8 pg (27.0-31.0); Mean Corpuscular Volume 88.7 fL (78.0-98.0); Mean Platelet Volume 8.8 fL (7.4-10.4); Platelet Count 258 thou/uL (130-400); RBC Distribution Width 12.4 % (11.5-14.5); Red Blood Cell (RBC) Count 4.62 mill/uL (4.20-5.40)
[2021-02-20] MEDS ORDERED: Lorazepam 0.5 MG TAB ONE (12:28)
[2021-02-20 12:42] LABS: ALT (SGPT) 17 U/L (8-55); AST (SGOT) 13 U/L (5-34); Albumin 4.5 g/dL (3.5-5.0); Alkaline Phosphatase 76 U/L (40-110); Anion Gap 15 mmol/L (10-20); BUN (Urea Nitrogen) 8 mg/dL (7.0-18.7); Bilirubin, Total 0.8 mg/dL (0.2-1.2); Calc. Creatinine Clearance 0 mL/min (70-130); Calcium 9.2 mg/dL (7.8-10.44); Carbon Dioxide 20 mmol/L (22-29); Chloride 109 mmol/L (98-107); Globulin 2.8 g/dL (2.4-3.5); Glucose 101 mg/dL (70-105); Potassium 4.1 mmol/L (3.5-5.1); Protein, Total 7.3 g/dL (6.0-8.3); Sodium 140 mmol/L (136-145)
[2021-02-20 13:13] LABS: Pregnancy Test - Urine (BHCG) Negative (Negative); Pregu Control Background? CLEAR/WHITE (CLR/WHITE); Pregu Control Bar Appear? YES (CONTROL BAR)
[2021-02-20 13:15] LABS: Specific Gravity 1.015 (1.002-1.036)
== END 2021-02-20 13:16 | disposition home or self-care (01) ==
LOC: BURERS 11:56
DX: F45.8 Other somatoform disorders (principal); J44.9 Chronic obstructive pulmonary disease, unspecified; F17.210 Nicotine dependence, cigarettes, uncomplicated
CPT/HCPCS: 36415; 71045; 80053; 81025; 83880; 84484; 85025

== ENCOUNTER 2021-07-23 11:17 | Emergency (ER) | payer SELFPAY ==
[2021-07-23] MEDS ORDERED: Pantoprazole 40 MG VIAL ONE (11:46)
[2021-07-23] MEDS ORDERED: Ondansetron PF 4 MG/2 ML Vial ONE (11:46)
[2021-07-23 11:48] LABS: Bilirubin Negative (Negative); Blood, Urine Trace (Negative); Clarity Clear (Clear); Glucose, Urine (Dipstick) Negative (Negative); Ketone, Urine Negative (Negative); Leukocyte Trace (Negative); Nitrite Negative (Negative); Protein, Urine (Dipstick) Negative (Neg-Trace); Urobilinogen 0.2 mg/dL (Less than 2); pH, Urine 5.5 (5.0-9.0)
[2021-07-23 11:50] LABS: #Basophils 0.1 thou/uL (0.0-0.2); #Eosinphils 0.2 thou/uL (0.0-0.7); #Lymphocytes 1.5 thou/uL (1.20-3.40); #Monocytes 0.6 thou/uL (0.11-0.59); #Neutrophils 5.8 thou/uL (1.40-6.50); %Basophils 0.9 % (0.0-1.0); %Eosinophils 1.9 % (0.0-10.0); %Lymphocytes 18.5 % (21.0-51.0); %Monocytes 6.9 % (0.0-10.0); %Neutrophils 71.8 % (42.0-75.0); Hemoglobin 13.7 g/dL (12.0-16.0); Mean Corpuscular HGB CONC 32.8 g/dL (32.0-36.0); Mean Corpuscular Hemoglobin 29.2 pg (27.0-31.0); Mean Corpuscular Volume 89.1 fL (78.0-98.0); Platelet Count 303 thou/uL (130-400); RBC Distribution Width 12.3 % (11.5-14.5); Red Blood Cell (RBC) Count 4.69 mill/uL (4.20-5.40); White Blood Cell (WBC) Count 8.1 thou/uL (4.8-10.8)
[2021-07-23 12:02] LABS: RBC/HPF 0-3 HPF (0-3); WBC/HPF 0-3 HPF (0-3)
[2021-07-23 12:03] LABS: ALT (SGPT) 19 U/L (8-55); AST (SGOT) 13 U/L (5-34); Albumin 4.7 g/dL (3.5-5.0); Alkaline Phosphatase 81 U/L (40-110); Anion Gap 15 mmol/L (10-20); BUN (Urea Nitrogen) 6 mg/dL (7.0-18.7); Bilirubin, Total 0.7 mg/dL (0.2-1.2); Calc. Creatinine Clearance 0 mL/min (70-130); Calcium 10.1 mg/dL (7.8-10.44); Carbon Dioxide 21 mmol/L (22-29); Chloride 107 mmol/L (98-107); Globulin 3.1 g/dL (2.4-3.5); Glucose 88 mg/dL (70-105); Lipase 36 U/L (8-78); Potassium 3.8 mmol/L (3.5-5.1); Protein, Total 7.8 g/dL (6.0-8.3); Sodium 139 mmol/L (136-145)
[2021-07-23 12:03] LABS: Bacteria/HPF 1+ HPF (None Seen)
[2021-07-23 12:09] LABS: BHCG - Serum Negative (NEGATIVE); Pregs Control Background? CLEAR/WHITE (CLR/WHITE); Pregs Control Bar Appear? YES (CONTROL BAR)
[2021-07-23] MEDS ORDERED: Iopamidol 370 76% 100 ML VIAL ONE (17:08)
== END 2021-07-23 12:49 | disposition home or self-care (01) ==
LOC: BURERS 11:17
DX: K92.1 Melena (principal); K52.9 Noninfective gastroenteritis and colitis, unspecified; J44.9 Chronic obstructive pulmonary disease, unspecified; Z87.891 Personal history of nicotine dependence; Z79.899 Other long term (current) drug therapy
CPT/HCPCS: 74177; 80053; 81003; 81015; 82274; 83690; 84703; 85025; 96374; 96375; C9113; J2405; Q9967

== ENCOUNTER 2021-12-11 13:16 | Emergency (ER) | payer SELFPAY ==
[2021-12-11] MEDS ORDERED: Lorazepam 2 MG/ML VIAL ONE (13:39)
[2021-12-11 13:48] LABS: #Basophils 0.1 thou/uL (0.0-0.2); #Eosinphils 0.2 thou/uL (0.0-0.7); #Lymphocytes 1.9 thou/uL (1.20-3.40); #Monocytes 0.7 thou/uL (0.11-0.59); #Neutrophils 4.2 thou/uL (1.40-6.50); %Eosinophils 2.8 % (0.0-10.0); %Neutrophils 59.3 % (42.0-75.0); Hemoglobin 14.3 g/dL (12.0-16.0); Mean Corpuscular HGB CONC 33.7 g/dL (32.0-36.0); Mean Corpuscular Hemoglobin 30.1 pg (27.0-31.0); Mean Corpuscular Volume 89.5 fL (78.0-98.0); Mean Platelet Volume 8.9 fL (7.4-10.4); Platelet Count 281 thou/uL (130-400); RBC Distribution Width 11.7 % (11.5-14.5); Red Blood Cell (RBC) Count 4.74 mill/uL (4.20-5.40); White Blood Cell (WBC) Count 7.1 thou/uL (4.8-10.8)
[2021-12-11 14:04] LABS: ALT (SGPT) 12 U/L (8-55); AST (SGOT) 10 U/L (5-34); Albumin 4.7 g/dL (3.5-5.0); Alkaline Phosphatase 77 U/L (40-110); Anion Gap 14 mmol/L (10-20); BUN (Urea Nitrogen) 8 mg/dL (7.0-18.7); Bilirubin, Total 0.5 mg/dL (0.2-1.2); Calc. Creatinine Clearance 0 mL/min (70-130); Calcium 9.4 mg/dL (7.8-10.44); Carbon Dioxide 25 mmol/L (22-29); Chloride 105 mmol/L (98-107); Glucose 107 mg/dL (70-105); Potassium 3.7 mmol/L (3.5-5.1); Protein, Total 7.7 g/dL (6.0-8.3); Sodium 140 mmol/L (136-145)
== END 2021-12-11 15:02 | disposition home or self-care (01) ==
LOC: BURERS 13:16
DX: R07.89 Other chest pain (principal); F41.9 Anxiety disorder, unspecified; J44.9 Chronic obstructive pulmonary disease, unspecified; Z87.891 Personal history of nicotine dependence
CPT/HCPCS: 36415; 71046; 80053; 83880; 84484; 85025; 93005; 94760; 96374; J2060

== ENCOUNTER 2024-04-14 07:59 | Emergency (ER) | payer OTHER | END 2024-04-14 08:41 | disposition home or self-care (01) | LOC: BURERS 07:59 | DX: K59.00 Constipation, unspecified (principal); K62.5 Hemorrhage of anus and rectum; J44.9 Chronic obstructive pulmonary disease, unspecified; F17.210 Nicotine dependence, cigarettes, uncomplicated | CPT/HCPCS: 99282 ==

== ENCOUNTER 2025-07-28 10:57 | Observation (INO) | payer OTHER, SELFPAY ==
[2025-07-28 11:31] LABS: #Basophils 0.1 thou/uL (0.0-0.2); #Eosinophils 0.2 thou/uL (0.0-0.7); #Lymphocytes 2.2 thou/uL (1.20-3.40); #Monocytes 0.5 thou/uL (0.11-0.59); #Neutrophils 5.9 thou/uL (1.40-6.50); %Basophils 1.2 % (0.0-1.0); %Eosinophils 2.2 % (0.0-10.0); %Lymphocytes 24.8 % (21.0-51.0); %Monocytes 5.6 % (0.0-10.0); %Neutrophils 66.3 % (42.0-75.0); Hematocrit 47.1 % (36.0-47.0); Hemoglobin 15.3 g/dL (12.0-16.0); Mean Corpuscular Hemoglobin 29.8 pg (27.0-31.0); Mean Corpuscular Volume 91.6 fl (78.0-98.0); Platelet Count 347 10x3/uL (130-400); Red Blood Cell (RBC) Count 5.14 mill/uL (4.20-5.40); White Blood Cell (WBC) Count 8.9 10x3/uL (4.8-10.8)
[2025-07-28 11:46] LABS: ALT (SGPT) 16 U/L (Less than 34); AST (SGOT) 15 U/L (11-34); Albumin 4.7 g/dL (3.1-4.5); Alkaline Phosphatase 75 U/L (40-110); Anion Gap 18 mmol/L (10-20); BUN (Urea Nitrogen) 10 mg/dL (7.0-18.7); Bilirubin, Total 0.5 mg/dL (0.3-1.2); Calc. Creatinine Clearance 0 mL/min (70-130); Calcium 10.1 mg/dL (7.8-10.44); Carbon Dioxide 22 mmol/L (22-29); Chloride 105 mmol/L (98-107); Globulin 3.1 g/dL (2.4-3.5); Glucose 115 mg/dL (70-105); Potassium 3.7 mmol/L (3.5-5.1); Sodium 141 mmol/L (136-145)
[2025-07-28 11:47] LABS: Bicarbonate (HCO3v) 26.6 mmol/L (22.0-28.0); CO2 Tension (PvCO2) 38.5 mmHg (42.0-51.0); Calcium, Ionized 1.20 mmol/L (1.15-1.33); Chloride 104 mmol/L (98-107); Hemoglobin - Calc 14.9 g/dL (12.0-16.0); Potassium 3.6 mmol/L (3.5-5.1); Sodium 138 mmol/L (138-145); T. Carbon Dioxide 27.8 mmol/L (22.0-28.0); vO2 Saturation-calc 99.7 % (60.0-85.0)
[2025-07-28 12:50] LABS: Glucose, Urine (Dipstick) Negative (Negative); Leukocyte Negative (Negative); Protein, Urine (Dipstick) Negative (Neg-Trace); Specific Gravity, Urine 1.020 (1.005-1.030)
[2025-07-28 12:57] LABS: Bacteria/HPF Rare-Few HPF (None Seen); CAUTI Indications for Culture Dysuria,urgency,freq; RBC/HPF 0-3 HPF (0-3); WBC/HPF 0-3 HPF (0-3)
[2025-07-28 12:58] LABS: Mucous/LPF Few LPF (<2+); Urine Culture Reflex No No
[2025-07-28 14:49] VITALS: BMI 25.6
[2025-07-28] MEDS ORDERED: Albuterol 200 PUFF (6.7GM INHALER) INH PRN (16:05)
[2025-07-28] MEDS: Vancomycin HCl 1.5 GM VIAL ONE (16:25)
[2025-07-28] MEDS: cefTRIAXone (ROCEPHIN) 2 GM VIAL ONE (16:25)
[2025-07-28] MEDS: Ondansetron PF 4 MG/2 ML Vial ONE (16:25)
[2025-07-28] MEDS: Acetaminophen 500 MG TAB ONE (16:26)
[2025-07-28] MEDS: HYDROcodone/Acetaminophen 5/325 mg Tablet PO PRN (16:31)
[2025-07-28] MEDS: HYDROcodone/Acetaminophen 5/325 mg Tablet PO SCH (20:24)
[2025-07-28] MEDS: Mometasone 200 MCG/Formoterol 5 MCG 60 PUFF INHALER INH SCH (20:45)
[2025-07-28] MEDS: Ibuprofen 800 MG TAB PO PRN (22:05)
[2025-07-28] MEDS: Vancomycin HCl 750 MG in Sodium Chloride 0.9% 250 ML 250 ML IVPB SCH (23:26)
[2025-07-29 05:06] LABS: Vancomycin, Random 21.3 ug/mL (See Comment)
[2025-07-29] MEDS: Vancomycin 1 GM in Sodium Chloride 0.9% 250 ML 250 ML IVPB SCH (12:06)
[2025-07-29 17:11] VITALS: BMI 25.2
[2025-07-30 11:35] VITALS: BP 168/70; TEMP 98.5
== END 2025-07-30 11:30 | disposition home or self-care (01) ==
LOC: BURERS 10:57 → BURMED 13:02
PROVIDERS: ADMIT Family Medicine; ATTEND Family Medicine
DX: L03.312 Cellulitis of back [any part except buttock and flank] (principal); J44.9 Chronic obstructive pulmonary disease, unspecified; F17.200 Nicotine dependence, unspecified, uncomplicated; Z85.41 Personal history of malignant neoplasm of cervix uteri; Z98.51 Tubal ligation status; Z90.49 Acquired absence of other specified parts of digestive tract; Z90.89 Acquired absence of other organs; Z88.5 Allergy status to narcotic agent; Z88.8 Allergy status to other drugs, medicaments and biological substances; Z88.6 Allergy status to analgesic agent; Z79.51 Long term (current) use of inhaled steroids
CPT/HCPCS: 36415; 80053; 80202; 81001; 82330; 82435; 82803; 83605; 84132; 84295; 85014; 85025; 87040; 87070; 87086; 87205; 93005; 94760; 96365; 96367; 96375; 96376; G0378; J0696; J2405; J2543; J3373; J7050; Q0162